=== PATIENT | male | born 1945 | race Caucasian/White ===

== ENCOUNTER 2017-01-10 19:10 | Observation (INO) | payer OTHER, SELFPAY ==
--- NOTE | ~2017-01-10 | SLEEP ---
[facility] [place] [address] [place]. [address] NAME: JJ LEI : 49 STATUS : DIS Natalie PAT#: [id number] AGE: 71 ADM/REG DATE : 01/10/17 MR#: [id number] REPORT SERV DATE: 01/13/17 DICTATED BY: NIGEL NÚÑEZ DATE: 01/11/17 REPORT STATUS : Draft TRANSCRIBED BY: MODL DATE: 01/11/17 PROCEDURE: Nocturnal oximetry study on room air. DESCRIPTION: This is a nocturnal oximetry study performed on room air on 01/11/2017 starting at 12:15 a.m. and ending at 6:07 a.m. Recording time was 5 hours 52 minutes 8 seconds. Average heart rate 66 with a low of 58 and a high of 80. Average O2 saturation was 92.1% with a low of 73%. Time below 88% was 8 minutes and 44 seconds or 2.5% of the study night. Oxygen desaturation index was elevated at 17.1. IMPRESSION: This is an abnormal oximetry study showing significant oxygen desaturations down to 73% along with an elevated oxygen desaturation index. If sleep apnea is of concern, then outpatient sleep study should be administered. Otherwise, assess for secondary causes of nocturnal hypoxemia. If sleep apnea has been ruled out, then nighttime oxygen starting at 2 liters/minute to start with would be indicated. Correlate clinically. LIBIA/EULA Nigel Núñez DO / [id number] CC: Tank Jean Baptiste Jr, MD Christopher Greene, M.D.
--- NOTE | ~2017-01-10 | DS ---
Discharge Summary [facility] [address] [facility] [place]. [address] NAME: JJ LEI : 49 STATUS : DIS Natalie PAT#: [id number] AGE: 71 ADM/REG DATE : 01/10/17 MR#: [id number] REPORT SERV DATE: 01/12/17 DICTATED BY: JAMES CARDOZA DATE: 01/11/17 REPORT STATUS : Draft TRANSCRIBED BY: MODL DATE: 01/11/17 ADMISSION DATE: 01/10/2017 DISCHARGE DATE: 01/11/2017 FINAL DIAGNOSES: 1. Hypersomnolence. 2. Prolonged sleep depravation. 3. Obstructive sleep apnea, noncompliance. 4. Morbid obesity. 5. Pulmonary hypertension secondary to #3. 6. Distal edema secondary to #5. 7. Diabetes, uncontrolled, Dr. Negrete treating. 8. Peripheral neuropathy. HOSPITAL COURSE: The patient came in complaining of hypersomnolence. He was put into the Clinical Decision Unit where he was seen by Dr. Altman, Neurology. She thought that he had hypersomnolence due to sleep deprivation from noncompliance with his CPAP. He had seen Dr. Unger about 2-1/2 years ago for CPAP and titration. He has seen Dr. Loyola and/or his nurse practitioner on a weekly basis. He does see Dr. Cid as well but is noncompliant with the diet and weight loss as well. CPK was drawn prior to discharge to see if he had a primary muscular disease that caused hypoventilation; however, his arterial blood gases showed adequate ventilation with a pH of 7.42, a PaCO2 of 42, and a PO2 of 82. Repeat showed a PaO2 of 70 prior to discharge. His TSH was 2.42. Magnesium was 1.7. The creatinine was 1.45 with a BUN of 19. Hemoglobin 13, hematocrit 37. Dr. Altman, Neurology, recommended that he follow up with Dr. Deepa Hitchcock for titration of his CPAP with an overnight polysomnogram. Nocturnal oximetry was pending at the time of discharge. He will be discharged on the same home medications which include the following: Aspirin 81 mg p.o. daily, atorvastatin 40 mg p.o. daily, Bumex 1 mg p.o. twice a day, Wellbutrin XL 300 mg p.o. q.a.m., carvedilol 12.5 mg p.o. b.i.d., clopidogrel 75 mg p.o. every morning, hydrochlorothiazide 25 mg p.o. daily, hydralazine 50 mg p.o. three times a day, NovoLog 50 to 75 units with meals, Lantus 102 units at bedtime, isosorbide mononitrate 30 mg p.o. q.a.m., loratadine 10 mg p.o. daily, Antivert 25 three times a day as needed for dizziness, Lovaza 1 g four at nighttime, Lyrica 300 mg p.o. at bedtime, and stool softener once a day. He will follow back up with Dr. Abrahan Loyola in about one week or his nurse practitioner and see Dr. Prateek Negrete as scheduled and follow up with Dr. Gabbie Hitchcock per Neurology referral. KIMO/ELUA Discharge Summary [address] [address] NAME: JJ LEI : 49 STATUS : DIS Natalie PAT#: [id number] AGE: 71 ADM/REG DATE : 01/10/17 MR#: [id number] REPORT SERV DATE: 01/12/17 DICTATED BY: JAMES CARDOZA DATE: 01/11/17 REPORT STATUS : Draft TRANSCRIBED BY: MODEvangelista DATE: 01/11/17 James Cardoza M.D. / [id number] CC: Tank Jean Baptiste Jr, MD Christopher Greene, M.D. Tareck Kadrie, M.D. Emily Reeves, M.D.
--- NOTE | ~2017-01-10 | CN ---
Consultation Report [facility] [address] [place]. [address] NAME: JJ LEI : 49 STATUS : DIS Natalie PAT#: [id number] AGE: 71 ADM/REG DATE : 01/10/17 MR#: [id number] REPORT SERV DATE: 01/13/17 DICTATED BY: HERIBERTO ALTMAN DATE: 01/11/17 REPORT STATUS : Draft TRANSCRIBED BY: MODL DATE: 01/11/17 NEUROLOGICAL EVALUATION-CONSULTATION DATE OF CONSULTATION: REQUESTING PHYSICIAN: Dr. Saleem and Dr. Jean Baptiste. PATIENT LOCATION: [facility]. HISTORY OF PRESENT ILLNESS: This is a 71-year-old male with known history of diabetes mellitus, history of coronary artery disease, status post stent placement in 2014, followed by Dr. Santamaria, systolic congestive heart failure, history of obstructive sleep apnea, noncompliance with CPAP, chronic kidney disease stage 3, who was admitted with episodes of syncope and uncontrollable sleepiness. The patient stated that in the past month, he has gained up to 15 pounds, but noted increased swelling in his lower extremities and has had extreme fatigue. The patient was not able to carry on daily activities, feeling fatigued. The patient has been noncompliant with use of his CPAP. His myocardial infarction occurred in 2014. The patient is status post CABG. In addition to the above-mentioned history, the patient has history of hypercholesteremia, MRSA infection of the big toe, which resulted from stepping on the needle. The patient required prolonged hospitalization and rehabilitation. He has history of nephrolithiasis with stent placement, childhood asthma, renal artery stenosis, and history of stent placement. SURGICAL HISTORY: As mentioned above, status post CABG in 2014, left nephrectomy with pyelonephritis, "nonfunctional left kidney." ALLERGIES: ACTOS AND NEURONTIN. SOCIAL HISTORY: The patient denied smoking. Denied use of alcohol. He is , lives in [place]. 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 FAMILY HISTORY: Significant history of diabetes and heart disease, has history of COPD. MEDICATIONS PRIOR TO ADMISSION: Included aspirin 243, Lipitor 40 mg a day, Bumex 1 mg daily, hydrochlorothiazide 25 mg p.o. daily, hydralazine 50 mg p.o. t.i.d., NovoLog insulin 50-75 units subcutaneous with each meal, and Lantus 100 units at bedtime. As per the patient, he has been noncompliant with use of his diuretics. The patient also uses Claritin p.r.n. daily, meclizine, Lyrica 300 mg at bedtime, and stool softeners as needed. The patient does have history of diabetic neuropathy. REVIEW OF SYSTEMS: As mentioned above. The patient has had episodes of "blacking out," which the patient Consultation Report [place] [address] [facility] [place]. [address] NAME: JJ LEI : 49 STATUS : DIS Natalie PAT#: [id number] AGE: 71 ADM/REG DATE : 01/10/17 MR#: [id number] REPORT SERV DATE: 01/13/17 DICTATED BY: HERIBERTO ALTMAN DATE: 01/11/17 REPORT STATUS : Draft TRANSCRIBED BY: EULA DATE: 01/11/17 admits to having episodes of hypersomnolence and "dizziness." Has had difficulty with droopy eyelids since early age, which has gotten worse. The patient denied fluctuating droopy eyelids or fluctuating shortness of breath or muscle fatigability. The patient does not feel refreshed after taking a nap, which he takes regularly at times few times a day. The patient stated he has had shortness of breath, however, denied chest pain. The patient has had increasing leg edema and difficulty sleeping. He sleeps alone. His has not slept with him since the patient stopped using his CPAP. The rest of the 14-point of review of system was negative. PHYSICAL EXAMINATION: GENERAL: The patient was sitting up in bed. He was alert and cooperative, did not appear in acute distress. VITAL SIGNS: Blood pressure 140/67, pulse was 68, respirations 20, temperature was 97.6. His weight was 149.68 kg. He is 5 feet 8 inches. HEAD AND NECK: Showed him to be normocephalic. There was no evidence of trauma. Auscultation of the neck showed no evidence of bruits. Neck was quite short with increased neck circumference. EYES: Sclerae were not icteric. Conjunctivae were pink. ENT: Airway appeared small. Mallampati class 3. NECK: Supple. There was no Kernig or Brudzinski. Cervical range of motion was not impaired. There was no JVD. No thyromegaly. CHEST: Symmetrical. The patient had overall obesity, which included his trunk. LUNGS: Clear, although breath sounds were decreased at the bases. HEART: Auscultation of his heart showed regular S1. I did not appreciate any murmurs or rubs. ABDOMEN: Obese, soft, nontender. Bowel sounds were present. No organomegaly. EXTREMITIES: Showed pitting edema extending up to the knees, +2 pitting edema. Discoloration of the distal skin in both lower extremities, symmetrical, darkened. Status post surgery of right big toe, postsurgical scar in between big toe and first phalanx appeared well healed, normal coloration. NEUROLOGICAL EXAMINATION: MENTAL STATUS EXAM: The patient was alert, oriented to self, time, and place. His speech was fluent. There was no evidence of aphasia or dysarthria. Thought content and mood were appropriate. The patient denied being depressed. Distant and recent memory testing showed no evidence of significant deficits. CRANIAL NERVE EXAMINATION 2 THROUGH 12: Visual griffin on confrontation were intact. Funduscopic exam showed no evidence of papilledema, hemorrhages, or exudates. Pupils were 2 3 mm, reactive to light and accommodation. Extraocular movements were full. There was no nystagmus. No limitation of upward or downward gaze was noted. Mild ptosis was noted. No fatigability was seen. The rest of cranial nerve examination showed no asymmetry on inspection and examination of muscles of facial expression. Lower cranial nerves were intact. Tongue was midline. No atrophy or fibrillations were noted. Palate elevates symmetrically. Sternocleidomastoid and trapezius muscles were normal. Hearing was intact bilaterally. Facial sensation and muscles of mastication showed no evidence of asymmetry or weakness. Consultation Report [place] [address] [facility]. [address] NAME: JJ LEI : 49 STATUS : DIS Natalie PAT#: [id number] AGE: 71 ADM/REG DATE : 01/10/17 MR#: [id number] REPORT SERV DATE: 01/13/17 DICTATED BY: HERIBERTO ALTMAN DATE: 01/11/17 REPORT STATUS : Draft TRANSCRIBED BY: MODL DATE: 04/01/17 MOTOR EXAM: Muscle, bulk, and tone appeared within normal range. Strength was 5/5 throughout, although the patient did have mild give-way weakness on testing of upper and lower extremities. No significant deficits were noted. Strength was 5/5 throughout. Deep tendon reflexes were 1+/2 in upper extremities, 1+/2 at the knees, and 0/2 in the left ankle. Trace at the right knee and +1 at the right ankle. Babinski signs were not elicitable. SENSORY EXAM: Showed stocking distribution, decreased vibration, pinprick, light touch, and temperature distally in both lower extremities. Romberg test was equivocal, but essentially negative. CEREBELLAR EXAM: [id number], ppym-hy-ijcc, rapid alternating movements were symmetrical and within normal range. GAIT: Mildly wide-based. The patient looked down, but appeared not to have ataxia. LABORATORY STUDIES: Sodium 139, potassium 3.9, chloride 99, bicarb 29.1, BUN 25, creatinine 1.53. Glomerular filtration rate 53. Glucose 307, calcium 9.1, magnesium 2. WBC count 6.5, hemoglobin 12.7, hematocrit 36.7, and platelet count 201,000. PT/INR 1.1. CPK not obtained. Troponin 0.05. BNP 239. TSH 2.250. Chest x-ray showed cardiomegaly difficult to interpret, but appeared stable as per report from 08/2016. EKG showed right bundle-branch block, sinus bradycardia. CT scan of the head was reviewed and showed no intracranial process and no acute changes. IMPRESSION AND RECOMMENDATIONS: 1. Extreme hypersomnolence is suggestive of somnolence secondary to noncompliance with CPAP. The patient has gained 15 pounds in the last two months. The patient has been noncompliant with use of his CPAP since 2014. The patient undoubtedly has worsening obstructive sleep apnea, which causes increased daytime hypersomnolence and uncontrollable episodes of sleep. There was no evidence to suggest narcolepsy. The patient does not have evidence of cataplexy as per history and his daytime naps are certainly not refreshing. Recommend to repeat an outpatient polysomnography study and CPAP titration study. The importance of use of CPAP was explained and the increased risk of stroke and heart attack in patients with obstructive sleep apnea who are noncompliant with CPAP was explained to the patient. Episodes of recurrent falls may be secondary to the patient's peripheral neuropathy and combination of daytime somnolence. The patient has significant peripheral neuropathy on neurological examination. 2. Ptosis, which as per patient, has been chronic and nonfluctuating. May suggest presence of either underlying myasthenia gravis or congenital myopathy. The patient does not have any signs of ophthalmoplegia to suggest presence of Sugey-Natalia syndrome or other entities, which enter into the differential diagnosis of ptosis. We would obtain CPK and aldolase to determine whether the patient may have congenital myopathy or congenital dystrophies. Most common dystrophy that can cause ptosis would be Consultation Report [facility] [address] [place]. [address] NAME: JJ LEI : 49 STATUS : DIS Natalie PAT#: [id number] AGE: 71 ADM/REG DATE : 01/10/17 MR#: [id number] REPORT SERV DATE: 01/13/17 DICTATED BY: HERIBERTO ALTMAN DATE: 01/11/17 REPORT STATUS : Draft TRANSCRIBED BY: EULA DATE: 01/11/17 myotonic dystrophy. On examination, the patient showed no signs of myotonia. However, I would recommend an outpatient Neurology followup and consultation for possible neuromuscular congenital disease evaluation. 3. The patient admits to being noncompliant with his diuretics and other medications. 4. Increased risk of stroke. The patient has many risk factors, which were explained to him, the importance of outpatient followup with his [employer] certified network professional and neurological outpatient evaluation was stressed to the patient. The patient's increased risk factors for stroke include hypertension, diabetes mellitus, obesity, probable hyperlipidemia, noncompliance with treatment of obstructive sleep apnea. 5. The patient was advised not to drive until he is released to drive by his primary physician and neurologist after the patient has outpatient sleep evaluation and obtains a polysomnography study and CPAP titration study and is marked to be compliant with his CPAP. Thank you for allowing me to participate in this patient's care. JMIENA/EULA Heriberto Altman MD / [id number] CC: Tank Jean Baptiste Jr, MD Christopher Greene, M.D.
--- NOTE | ~2017-01-10 | HP ---
History And Physical [place] [address] [facility] [place]. [address] NAME: JJ LEI : 49 STATUS : ADM Natalie PAT#: [id number] AGE: 71 ADM/REG DATE : 01/10/17 MR#: [id number] REPORT SERV DATE: 01/11/17 DICTATED BY: ASHLIE NICHOLS DATE: 01/10/17 REPORT STATUS : Draft TRANSCRIBED BY: MODL DATE: 01/10/17 DATE OF ADMISSION: 01/10/2017 CHIEF COMPLAINT: A 71-year-old male presenting with hypersomnolence and narcolepsy and a fall today. HISTORY OF PRESENT ILLNESS: The patient's history was obtained through careful interview with patient and daughter coupled with review of [facility] and [facility] medical records. The patient and daughter state that the patient has been having a progressive hypersomnolence and narcolepsy over the last month or more. It seems to have progressed with the recent illness of patient's . She was admitted to the hospital just a few days ago for progressive advanced and uncontrolled lung disease of unclear etiology. She has had bronchoscopies and other interventions and now has been hospitalized on , seen by Pulmonary, and this has actually led the patient having less sleep than usual and staying up late into the night helping care for her. It is in this context, the patient has become increasingly hypersomnolent, even more than usual, and has been stumbling when he walks. There have been recurrent falls over the last month, but then on the evening of admission, the patient once again became lightheaded and dizzy and sleepy and fell to the ground. Once he had fallen, he actually could not get up from a fallen position without assistance, and the family decided to call the ambulance to bring him to the hospital. He states that he constantly feels "like I got buzz" as if he has been drinking beer (although he is completely abstinent of alcohol). He does relate that for some reason he stopped using his CPAP about two or three months ago. He admits to a chronic daily mid headache in his forehead, but not too severe. He also has had increasing lower back pain over last few days, and aching quality 6/10 to 7/10 severity. He describes his overall condition is "exhausted." He does have shortness of breath characterized by dyspnea on exertion but no orthopnea. There has been no confusion. He is just very slow to respond often and easily falls asleep. No nausea or vomiting. No diarrhea or constipation. No chest pain. The patient admits that he "ran out" of his Lantus for at least a week ago, and when he checks his blood sugars, they are most often over 300s. REVIEW OF SYSTEMS: History And Physical [address] [address] NAME: JJ LEI : 49 STATUS : ADM Natalie PAT#: [id number] AGE: 71 ADM/REG DATE : 01/10/17 MR#: [id number] REPORT SERV DATE: 01/11/17 DICTATED BY: ASHLIE NICHOLS DATE: 01/10/17 REPORT STATUS : Draft TRANSCRIBED BY: EULA DATE: 01/10/17 Otherwise, a 14-point review of systems was obtained and was negative. PAST MEDICAL HISTORY: 1. Coronary artery disease, status post CABG in 2014, followed by Dr. Santamaria. 2. Systolic congestive heart failure, ejection fraction 40% in 2014. 3. Obstructive sleep apnea, but has been noncompliant with CPAP for about two or three months. 4. Chronic kidney disease, stage 3, baseline creatinine of 1.2 to 1.4. 5. Diabetes. 6. Right toe cellulitis. 7. Lymphedema. 8. Elevated cholesterol. 9. Neuropathy. 10.MRSA. 11.Depression. 12.Nephrolithiasis with stent placement. 13.Pneumonia. 14.Childhood asthma. 15.Renal artery stenosis with history of stent placement. PAST SURGICAL HISTORY: 1. CABG in 2014. 2. Left nephrectomy for pyelonephritis and "nonfunctioning" left kidney. 3. Phimosis surgery. ALLERGIES: TO ACTOS AND NEURONTIN. SOCIAL HISTORY: No tobacco abuse, quit drinking beer years ago. He is , lives in [place], [place]. 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 He has three children. 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 FAMILY HISTORY: Diabetes and COPD. CURRENT MEDICATIONS: Include aspirin 243 mg p.o. daily, Lipitor 40 mg p.o. daily, Bumex 1 mg p.o. b.i.d., Wellbutrin XL 300 mg p.o. daily, Coreg 12.5 mg p.o. b.i.d., Plavix 75 mg p.o. daily, hydrochlorothiazide 25 mg p.o. daily, hydralazine 50 mg p.o. t.i.d., NovoLog 50 to 75 units subcutaneous with meals, Lantus 100 units subcutaneous at bedtime but he has been out of this medication for about a week or more, isosorbide mononitrate 30 mg daily, Claritin 10 mg p.o. daily, meclizine p.r.n., omega-3 fatty acids, Lyrica 300 mg p.o. at bedtime, stool softeners as needed. PHYSICAL EXAMINATION: VITAL SIGNS: Temperature 98.3, pulse 59, blood pressure 113/65, respiratory rate 20, O2 saturation 94% on room air. GENERAL: Morbidly obese, sleepy, and somnolent male, but no evidence of acute distress. HEENT: Pupils equal, round, and reactive to light. No conjunctival pallor. No scleral History And Physical [address] [address] NAME: JJ LEI : 49 STATUS : ADM Natalie PAT#: [id number] AGE: 71 ADM/REG DATE : 01/10/17 MR#: [id number] REPORT SERV DATE: 01/11/17 DICTATED BY: ASHLIE NICHOLS DATE: 01/10/17 REPORT STATUS : Draft TRANSCRIBED BY: MODEvangelista DATE: 01/10/17 icterus. Nares are patent. Oropharynx is clear of obstruction. Moist mucous membranes. NECK: Trachea midline. No thyromegaly. LYMPH: No cervical lymphadenopathy. No supraclavicular lymphadenopathy. RESPIRATORY: Clear to auscultation at bases. No wheezes, rales, or rhonchi. Normal respiratory effort. CARDIOVASCULAR: Bradycardic, regular rhythm. No murmurs, rubs, or gallops are appreciated. No current extremity edema is appreciated other than chronic symmetrical edema. ABDOMEN: Soft, nontender, nondistended. Central pattern of morbid obesity. No hepatosplenomegaly is appreciated. DERMATOLOGICAL: Warm and dry extremities. No pallor. No cyanosis. Very sleepy and somnolent but easily aroused with vocal stimuli. He is oriented x3, but is very slow in his responses. He has a flat affect but claims to be in good mood. LABORATORY DATA: White blood count 7.5, hemoglobin 13, hematocrit 37, platelets 207. Sodium 139, potassium 4.4, chloride 108, bicarb 32, BUN 19, creatinine 1.45, glucose 200, troponin 0.05, brain natriuretic peptide 239, INR 1.2. Urine drug screen negative. ABG demonstrates pH 7.42, PaCO2 of 42, a PaO2 of 82, and a bicarb of 27. STUDIES: 1. Chest x-ray, by my own evaluation shows cardiomegaly, difficult to interpret because of large body habitus, but stable compared to 08/2016. 2. EKG by my own evaluation shows sinus bradycardia, right bundle-branch block. 3. CT scan of the brain without contrast shows no acute intracranial process. ASSESSMENT AND PLAN: 1. Hypersomnolence with narcolepsy. I believe this could possibly be from noncompliant with CPAP, starting about 2 to 3 months ago leading to a cumulative sleep deprivation. 2. I would like to do an overnight oximetry study tonight to get a picture of the severity of patient's sleep apnea to see if this fits with my theory noted, though the patient had a normal ABG, I would also like to obtain Neurology consult, question whether this could be a central mediated condition? 3. Recurrent falls, obtain a physical therapy evaluation, a nonfocal neurological exam. 4. Chronic kidney disease, stage 3. 5. Uncontrolled diabetes. 6. The patient "ran out" of his Lantus, will resume high-dose Levemir, premeal insulin, and aggressive sliding scale insulin, obtain a unit educator consult. Check hemoglobin A1c. KPL/MODL Ashlie Nichols M.D. / [id number] History And Physical [address] [address] NAME: JJ LEI : 49 STATUS : ADM Natalie PAT#: [id number] AGE: 71 ADM/REG DATE : 01/10/17 MR#: [id number] REPORT SERV DATE: 01/11/17 DICTATED BY: ASHLIE NICHOLS DATE: 01/10/17 REPORT STATUS : Draft TRANSCRIBED BY: EULA DATE: 01/10/17 CC: Tank Jean Baptiste Jr, MD Christopher Greene, M.D. Synthia Beeler, M.D.
[2017-01-10 18:54] LABS: ALLENS TEST Pos; CARBOXYHEMOGLOBIN 1.7 % (0-3); HCO3 (ACTUAL BICARBONATE) 26.7 MEQ/L (23-27); HEMOBLOGIN CONTENT 12.9 G/DL (14-18); INSTRUMENT SERIAL # 8087; METHEMOGLOBIN 0.2 % (0-3); O2 CONTENT 17.1 VOL% (18-24); OPERATOR ID 14335; PCO2 (CO2 TENSION) 42 MMHG (35-45); PO2 (O2 TENSION) 82 MMHG (79-93); SAMPLE Arterial; pH 7.42 (7.37-7.43)
[~2017-01-10 19:10] MED LIST: APRES50 PO; ASA5GR PO; ASAB PO; BACDS PO; BUM1 PO; CLARIT10 PO; COREG12 PO; COREG6 PO; COZAAR100 MG PO; CYMBALTA60 PO; FOLIC PO; GLUCOPHAGE1000 MG PO; GLUMETZA500 MG PO; IMDUR30 PO; INSNOVR SC; L-LYSINE PO; LANTUS SC; LANTUSCART SC; LIPITOR40 PO; LOVAZA1 GM PO; LYRICA200 MG PO; LYRICA300 MG PO; MIRALAXPKT PO; MONODOX100 MG PO; NORCO1 TA1 PO; NORV5 PO; NOVOLOG SC; NOVOPEN SC; PLAVIX PO; POTASSIUM CITRATE ER PO; SENTAB PO; SIMILASAN EYE OPH; STOOL SOFTENER OTC PO; T3 PO; VIT B COMPLEX PO; VITAMIN B-12 PO; VITC500 PO; WELLXL300 PO; ZINC PO; ZOCOR20 PO; ZOL100 PO
[2017-01-10 19:28] LABS: BASOPHILS 0.4 %; BASOPHILS ABSOLUTE 0.03 10/3/uL (0.0-0.16); EOSINOPHILS 2.9 %; EOSINOPHILS ABSOLUTE 0.22 10/3/uL (0.0-0.53); ER CBC TAT 0 Hrs 08 Mins; HEMATOCRIT 37.5 % (40.0-51.0); HEMOGLOBIN 13.1 g/dL (13.6-17.8); IMMATURE GRANULOCYTES 0.3 %; IMMATURE GRANULOCYTES ABSOLUTE 0.02 10/3/uL (0.0-0.11); LYMPHOCYTES 28.5 %; LYMPHOCYTES ABSOLUTE 2.14 10/3/uL (0.67-4.30); MEAN CORPUS HGB CONC 34.9 g/dL (32.0-36.0); MEAN CORPUSCULAR VOLUME 88.7 fL (80-100); MEAN PLATELET VOLUME 9.1 fL (9.2-13.0); MONOCYTES 7.3 %; MONOCYTES ABSOLUTE 0.55 10/3/uL (0.21-1.20); NEUTROPHILS 60.6 %; NEUTROPHILS ABSOLUTE 4.54 10/3/uL (2.02-8.40); PLATELET COUNT 207 10/3/uL (150-400); RBC DISTRIBUTION WIDTH 14.5 % (12.0-16.0); RED CELL COUNT 4.23 10/6/uL (4.7-6.1); WHITE BLOOD CELLS 7.5 10/3/uL (4.5-10.5)
[2017-01-10 19:29] LABS: MANUAL DIFF NO %
[2017-01-10 19:34] LABS: INTERNATIONAL NORMAL RATI 1.2 UNITS (-); PARTIAL THROMBO TIME 27.2 SEC (22.5-37.2); PROTIME (NOT ORD) 14.6 SEC (12.0-14.5)
[2017-01-10 19:51] LABS: BUN (BLOOD UREA NITROGEN) 19 MG/DL (6-23); CALCIUM, SERUM 9.6 MG/DL (8.5-10.4); CHLORIDE, SERUM 100 MMOL/L (96-112); CREATININE 1.45 MG/DL (0.70-1.30); GFR AFRICAN AMERICAN 57 ML/MIN (>=60); GFR NON AFRICAN AMERICAN 49 ML/MIN (>=60); SODIUM, SERUM 139 MMOL/L (135-148)
[2017-01-10 19:53] LABS: ACETAMINOPHEN LEVEL (TYLENOL) < 2.0 MCG/ML (10.0-20.0); CHEST PAIN PROFILE TAT 0 Hrs 33 Mins; CO2 (CARBON DIOXIDE) 32 MMOL/L (24-34); GLUCOSE, SERUM 200 MG/DL (60-99); POTASSIUM, SERUM 4.4 MMOL/L (3.5-5.3); TROPONIN I 0.05 NG/ML (<0.05)
[2017-01-10 19:54] LABS: ALCOHOL < 10 MG/DL (0); SALICYLATE < 1.7 MG/DL (-)
[2017-01-10] MEDS ORDERED: HYDROCHLOROT25 MG PO (20:10)
[2017-01-10] MEDS ORDERED: MCZ25 PO (20:10)
[2017-01-10 20:45] LABS: AMPHETAMINES (NOT ORD) NEG (NEG); BARBITURATES (NOT ORDERED NEG (NEG); BENZODIAZEPINES (NOT ORD) NEG (NEG); CANNABINOIDS (THC) NEG (NEG); COCAINE (NOT ORDERED) NEG (NEG); OPIATES NEG (NEG); PHENCYCLIDINE(PCP) NEG (NEG); TRICYCLICS NEG (NEG)
[2017-01-11 05:27] LABS: INTERNATIONAL NORMAL RATI 1.1 UNITS (-); PARTIAL THROMBO TIME 26.5 SEC (22.5-37.2); PROTIME (NOT ORD) 14.3 SEC (12.0-14.5)
[2017-01-11 05:34] LABS: BASOPHILS 0.5 %; BASOPHILS ABSOLUTE 0.03 10/3/uL (0.0-0.16); EOSINOPHILS 3.9 %; EOSINOPHILS ABSOLUTE 0.25 10/3/uL (0.0-0.53); HEMATOCRIT 36.7 % (40.0-51.0); HEMOGLOBIN 12.7 g/dL (13.6-17.8); IMMATURE GRANULOCYTES 0.3 %; IMMATURE GRANULOCYTES ABSOLUTE 0.02 10/3/uL (0.0-0.11); LYMPHOCYTES ABSOLUTE 2.07 10/3/uL (0.67-4.30); MEAN CORPUS HGB CONC 34.6 g/dL (32.0-36.0); MEAN CORPUSCULAR HEMOGLOB 30.8 pg (26.0-34.0); MEAN CORPUSCULAR VOLUME 88.9 fL (80-100); MEAN PLATELET VOLUME 9.2 fL (9.2-13.0); MONOCYTES 9.3 %; NEUTROPHILS ABSOLUTE 3.49 10/3/uL (2.02-8.40); PLATELET COUNT 201 10/3/uL (150-400); RBC DISTRIBUTION WIDTH 14.3 % (12.0-16.0); RED CELL COUNT 4.13 10/6/uL (4.7-6.1); WHITE BLOOD CELLS 6.5 10/3/uL (4.5-10.5)
[2017-01-11 05:35] LABS: MANUAL DIFF NO %
[2017-01-11 05:39] LABS: WBC (NOT ORDERED) (RFLEX) 0 (0-5)
[2017-01-11 05:50] LABS: ASCORBIC ACID (UR NOT ORDER) NEG (NEG); BILIRUBIN, URINE NEGATIVE (NEG); KETONE, URINE NEGATIVE (NEG); LEUKOCYTE ESTERASE(NOT OR NEG (NEG)
[2017-01-11 06:00] LABS: A/G RATIO 0.9 (0.7-1.9); ALKALINE PHOSPHATASE 61 U/L (45-117); CALCIUM, SERUM 9.1 MG/DL (8.5-10.4); CHLORIDE, SERUM 99 MMOL/L (96-112); CO2 (CARBON DIOXIDE) 30 MMOL/L (24-34); CREATININE 1.53 MG/DL (0.70-1.30); GFR AFRICAN AMERICAN 53 ML/MIN (>=60); GFR NON AFRICAN AMERICAN 46 ML/MIN (>=60); GLOBULIN 3.4 G/DL (2.5-4.1); POTASSIUM, SERUM 3.9 MMOL/L (3.5-5.3); SGOT(AST) 36 U/L (5-40); SGPT(ALT) 41 U/L (5-65); SODIUM, SERUM 139 MMOL/L (135-148); TOTAL BILIRUBIN 0.7 MG/DL (0-1.2); TOTAL PROTEIN 6.4 G/DL (6.0-8.5)
[2017-01-11 06:05] LABS: BUN (BLOOD UREA NITROGEN) 25 MG/DL (6-23); GLUCOSE, SERUM 307 MG/DL (60-99)
[2017-01-11 06:20] LABS: ALLENS TEST Pos; BE (BASE EXCESS) 3.1 MEQ/L (0 +/- 2.5); CARBOXYHEMOGLOBIN 1.1 % (0-3); HCO3 (ACTUAL BICARBONATE) 29.1 MEQ/L (23-27); HEMOBLOGIN CONTENT 13.9 G/DL (14-18); INSTRUMENT SERIAL # 8083; METHEMOGLOBIN 0.2 % (0-3); O2 CONTENT 17.9 VOL% (18-24); OPERATOR ID 33214; PCO2 (CO2 TENSION) 50 MMHG (35-45); PO2 (O2 TENSION) 70 MMHG (79-93); SAMPLE Arterial; pH 7.38 (7.37-7.43)
[2017-05-21] MEDS ORDERED: LOVAZA1 GM PO (11:24)
== END 2017-01-11 16:00 | disposition home or self-care (01) ==
LOC: ER 19:10 → CDU1 21:29
PROVIDERS: Hospitalist; Internal Medicine
DX: G47.10 Hypersomnia, unspecified (principal); Z72.820 Sleep deprivation; G47.33 Obstructive sleep apnea (adult) (pediatric); I27.2 Other secondary pulmonary hypertension; E11.42 Type 2 diabetes mellitus with diabetic polyneuropathy; E66.01 Morbid (severe) obesity due to excess calories; Z68.43 Body mass index [BMI] 50.0-59.9, adult; I25.10 Atherosclerotic heart disease of native coronary artery without angina pectoris; Z95.5 Presence of coronary angioplasty implant and graft; E11.22 Type 2 diabetes mellitus with diabetic chronic kidney disease; N18.3 Chronic kidney disease, stage 3 (moderate); I25.2 Old myocardial infarction; E78.00 Pure hypercholesterolemia, unspecified; J45.909 Unspecified asthma, uncomplicated; F32.9 Major depressive disorder, single episode, unspecified; Z95.1 Presence of aortocoronary bypass graft; Z86.14 Personal history of Methicillin resistant Staphylococcus aureus infection; Z87.01 Personal history of pneumonia (recurrent); Z87.442 Personal history of urinary calculi; Z88.8 Allergy status to other drugs, medicaments and biological substances; Z83.3 Family history of diabetes mellitus; Z82.49 Family history of ischemic heart disease and other diseases of the circulatory system; Z83.6 Family history of other diseases of the respiratory system; Z90.5 Acquired absence of kidney; Z98.890 Other specified postprocedural states
CPT/HCPCS: 36600; 70450; 71010; 80048; 80053; 80305; 80307; 81001; 82085; 82550; 82805; 82962; 83036; 83735; 83880; 84443; 84484; 85025; 85610; 85730; 93005; 94762; 96372; 96374; 99285; A9270-GY; G0378

== ENCOUNTER 2017-03-13 20:45 | Emergency (ER) | payer OTHER, SELFPAY ==
[2017-03-13 20:15] LABS: BASOPHILS 0.1 %; BASOPHILS ABSOLUTE 0.01 10/3/uL (0.0-0.16); EOSINOPHILS 1.1 %; EOSINOPHILS ABSOLUTE 0.08 10/3/uL (0.0-0.53); ER CBC TAT 0 Hrs 00 Mins; HEMATOCRIT 40.2 % (40.0-51.0); HEMOGLOBIN 13.5 g/dL (13.6-17.8); IMMATURE GRANULOCYTES 0.3 %; IMMATURE GRANULOCYTES ABSOLUTE 0.02 10/3/uL (0.0-0.11); LYMPHOCYTES 21.5 %; MEAN CORPUS HGB CONC 33.6 g/dL (32.0-36.0); MEAN CORPUSCULAR HEMOGLOB 30.4 pg (26.0-34.0); MEAN CORPUSCULAR VOLUME 90.5 fL (80-100); MEAN PLATELET VOLUME 9.6 fL (9.2-13.0); MONOCYTES 11.9 %; MONOCYTES ABSOLUTE 0.83 10/3/uL (0.21-1.20); NEUTROPHILS 65.1 %; NEUTROPHILS ABSOLUTE 4.55 10/3/uL (2.02-8.40); PLATELET COUNT 164 10/3/uL (150-400); RBC DISTRIBUTION WIDTH 13.8 % (12.0-16.0); RED CELL COUNT 4.44 10/6/uL (4.7-6.1)
[2017-03-13 20:18] LABS: ASCORBIC ACID (UR NOT ORDER) NEG (NEG); BILIRUBIN, URINE NEGATIVE (NEG); ER URINALYSIS TAT 0 Hrs 00 Mins; KETONE, URINE NEGATIVE (NEG); LEUKOCYTE ESTERASE(NOT OR NEG (NEG); MANUAL DIFF NO %; NITRITE (URINE) NEG (NEG); WBC (NOT ORDERED) (RFLEX) 1 (0-5)
[2017-03-13 20:25] LABS: INTERNATIONAL NORMAL RATI 1.2 UNITS (-); PARTIAL THROMBO TIME 26.4 SEC (22.5-37.2); PROTIME (NOT ORD) 14.9 SEC (12.0-14.5)
[2017-03-13 20:30] LABS: CALCIUM, SERUM 8.5 MG/DL (8.5-10.4); CHLORIDE, SERUM 104 MMOL/L (96-112); CREATININE 1.42 MG/DL (0.70-1.30); GFR AFRICAN AMERICAN 58 ML/MIN (>=60); GFR NON AFRICAN AMERICAN 50 ML/MIN (>=60); POTASSIUM, SERUM 3.7 MMOL/L (3.5-5.3); SODIUM, SERUM 143 MMOL/L (135-148)
[2017-03-13 20:31] LABS: BUN (BLOOD UREA NITROGEN) 12 MG/DL (6-23); CHEST PAIN PROFILE TAT 0 Hrs 01 Mins; CO2 (CARBON DIOXIDE) 33 MMOL/L (24-34); GLUCOSE, SERUM 124 MG/DL (60-99); TROPONIN I 0.07 NG/ML (<0.05)
[~2017-03-13 20:45] MED LIST changes: +HYDROCHLOROT25 MG PO; +MCZ25 PO
[2017-03-13] MEDS ORDERED: VITAMIN D3 OTC PO (21:45)
[2017-03-13] MEDS ORDERED: CLARIT10 PO (21:45)
[2017-03-13] MEDS ORDERED: SIMILASAN EYE OPH (21:46)
[2017-03-13] MEDS ORDERED: KLOR-CON 1010 MEQ PO (21:46)
[2017-03-13] MEDS ORDERED: ASAB PO (21:46)
[2017-03-13] MEDS ORDERED: LYRICA300 MG PO (21:47)
[2017-03-13] MEDS ORDERED: INSNOVN SC (21:47)
[2017-03-13] MEDS ORDERED: LIPITOR40 PO (21:47)
[2017-03-13] MEDS ORDERED: NOVOLOG SC (21:47)
[2017-03-13] MEDS ORDERED: PLAVIX PO (21:48)
[2017-03-13] MEDS ORDERED: APRES50 PO (21:48)
[2017-03-13] MEDS ORDERED: IMDUR30 PO (21:48)
[2017-03-13] MEDS ORDERED: COREG3 PO (21:48)
[2017-03-13] MEDS ORDERED: BUM1 PO (21:48)
[2017-05-21] MEDS ORDERED: LOVAZA1 GM PO (11:24)
== END 2017-03-13 22:01 | disposition home or self-care (01) ==
LOC: ER 20:45
PROVIDERS: Nurse Practitioner
DX: S50.311A Abrasion of right elbow, initial encounter (principal); S80.811A Abrasion, right lower leg, initial encounter; S00.81XA Abrasion of other part of head, initial encounter; M54.2 Cervicalgia; R79.89 Other specified abnormal findings of blood chemistry; E11.22 Type 2 diabetes mellitus with diabetic chronic kidney disease; N18.9 Chronic kidney disease, unspecified; I50.9 Heart failure, unspecified; I25.10 Atherosclerotic heart disease of native coronary artery without angina pectoris; E78.00 Pure hypercholesterolemia, unspecified; Z87.442 Personal history of urinary calculi; Z88.8 Allergy status to other drugs, medicaments and biological substances; Z79.899 Other long term (current) drug therapy; W19.XXXA Unspecified fall, initial encounter
CPT/HCPCS: 70450; 70486; 71010; 72125; 73080-RT; 73590-RT; 80048; 81001; 83735; 84484; 85025; 85610; 85730; 90471; 90714; 93005; 99284; A9270-GY